=== PATIENT | female | born 1975 | race Caucasian/White ===

== ENCOUNTER 2019-05-30 11:38 | Emergency (ER) | payer SELFPAY ==
[~2019-05-30] VITALS: Ht 152.4 cm; Wt 73.5 kg
[2019-05-30 11:44] VITALS: BP 139/65; Ht 152.4 cm; Wt 73.5 kg
== END 2019-05-30 13:08 | disposition home or self-care (01) ==
LOC: ED 11:38
DX: M54.81 Occipital neuralgia (principal); M62.830 Muscle spasm of back; R03.0 Elevated blood-pressure reading, without diagnosis of hypertension; F17.210 Nicotine dependence, cigarettes, uncomplicated; Z98.890 Other specified postprocedural states
CPT/HCPCS: J2001